=== PATIENT | male | born 1985 | race Caucasian/White ===

== ENCOUNTER 2022-01-15 16:14 | Emergency (ER) | payer SELFPAY ==
[~2022-01-15] VITALS: Ht 165.1 cm; Wt 72.6 kg
[2022-01-15 16:43] VITALS: BP 123/74
--- NOTE | 2022-01-15 16:52 | NUR ---
37 y/o Male BIB self for c/o of "genital abcess" pt noted with redenned raised tender lump noted on pubic area. Denies use of IV drugs, denies any trauma to area. Pt denies fever/CP/N/V/D. PmHx: Denies Allergies: Denies Home mneds: denies
--- NOTE | 2022-01-15 17:03 | NUR ---
Pt encouraged to urinate, pt states he is unable to at this time. Provided with water and urine cup so pt can provide sample.
[2022-01-15] MEDS: KETOROLAC 30 MG/ML VIAL IM ONE (17:41)
[2022-01-15] MEDS: LIDOCAINE 2% 1000 MG/50 ML VIAL INJ ONE (18:15)
[2022-01-15] MEDS ORDERED: CEPH-588 PO (18:20)
[2022-01-15] MEDS ORDERED: IBUP-1842 PO (18:20)
--- NOTE | 2022-01-15 18:25 | NUR ---
PT GENITAL ABCESS DRESSED AND BANDAGED
[2022-01-15 18:34] VITALS: BP 123/74
--- NOTE | 2022-01-15 18:34 | NUR ---
Patient discharged with v/s stable. Written and verbal after care instructions given and explained. Patient alert, oriented and verbalized understanding of instructions. Ambulatory with steady gait. All questions addressed prior to discharge. ID band removed. Patient advised to follow up with PMD. Rx of ibuprofen, cephalexin (sent) given. Patient educated on indication of medication including possible reaction and side effects. Opportunity to ask questions provided and answered.
== END 2022-01-15 18:34 | disposition home or self-care (01) ==
LOC: MED 16:14
DX: L02.211 Cutaneous abscess of abdominal wall (principal); Z79.899 Other long term (current) drug therapy
CPT/HCPCS: 96372; 99283; J1885; J2001

== ENCOUNTER 2022-03-17 20:33 | Emergency (ER) | payer SELFPAY ==
[~2022-03-17] VITALS: Ht 165.1 cm; Wt 72.6 kg
[~2022-03-17 20:33] MED LIST: CEPH-588 PO; IBUP-1842 PO
[2022-03-17 20:50] VITALS: BP 131/74
--- NOTE | 2022-03-17 20:53 | NUR ---
TO LOBBY A/W BED AMBULATORY
--- NOTE | 2022-03-17 21:41 | NUR ---
PT TAKEN TO BED 11
--- NOTE | 2022-03-17 21:45 | NUR ---
RECEIVED IN BED 11 WITH C/O ABSCESS RIGHT AXILLA. C/O PAIN. REDNESS AND SWELLING NOTED. SX X 1 WEEK
--- NOTE | 2022-03-17 22:35 | NUR ---
Dr. Pack examining patient.
[2022-03-17] MEDS ORDERED: LIDOCAINE/EPI 1% 1:100000 20 ML VIAL INJ ONE (22:40)
[2022-03-17] MEDS ORDERED: NAPR-54 PO (22:42)
[2022-03-17] MEDS ORDERED: CEPH-588 PO (22:42)
[2022-03-17 22:48] VITALS: BP 131/74
[2022-03-18] MEDS ORDERED: CLIN300C2 PO (06:58)
[2022-03-18] MEDS ORDERED: EPIN1KIT31 IM (06:58)
[2022-03-18] MEDS ORDERED: PRED20TA5 PO (06:58)
[2022-03-18] MEDS ORDERED: DIPH25TA39 PO (06:58)
== END 2022-03-17 22:54 | disposition home or self-care (01) ==
LOC: MED 20:33
DX: L02.411 Cutaneous abscess of right axilla (principal); Z79.899 Other long term (current) drug therapy
CPT/HCPCS: 10060; 99283; J2001

== ENCOUNTER 2022-03-18 06:36 | Emergency (ER) | payer SELFPAY ==
[~2022-03-18] VITALS: Ht 165.1 cm; Wt 72.6 kg
[~2022-03-18 06:36] MED LIST changes: +NAPR-54 PO
[2022-03-18 06:41] VITALS: BP 131/79
--- NOTE | 2022-03-18 06:41 | NUR ---
to bed ambulatory
--- NOTE | 2022-03-18 06:45 | NUR ---
RECEIVED IN BED 11 WITH C/O HIVES WHICH STARTED AFTER TAKING KEFLEX
--- NOTE | 2022-03-18 06:50 | NUR ---
Dr. Church examining patient.
[2022-03-18] MEDS ORDERED: diphenhydrAMINE 50 MG/ML VIAL IM ONE (06:55)
[2022-03-18] MEDS ORDERED: diphenhydrAMINE 50 MG/ML VIAL ONE (06:57)
[2022-03-18] MEDS ORDERED: DIPH25TA39 PO (06:58)
[2022-03-18] MEDS ORDERED: CLIN300C2 PO (06:58)
[2022-03-18] MEDS ORDERED: EPIN1KIT31 IM (06:58)
[2022-03-18] MEDS ORDERED: PRED20TA5 PO (06:58)
[2022-03-18 07:03] VITALS: BP 131/79
--- NOTE | 2022-03-18 07:03 | NUR ---
Patient discharged with v/s stable. Written and verbal after care instructions given and explained. Patient alert, oriented and verbalized understanding of instructions. Ambulatory with steady gait. All questions addressed prior to discharge. ID band removed. Patient advised to follow up with PMD. Rx of EPIPEN, CLEOCIN, AND BENADRYL given. Patient educated on indication of medication including possible reaction and side effects. Opportunity to ask questions provided and answered.
== END 2022-03-18 07:03 | disposition home or self-care (01) ==
LOC: MED 06:36
DX: L50.0 Allergic urticaria (principal); Z88.1 Allergy status to other antibiotic agents
CPT/HCPCS: 96372; 99283; J1200

== ENCOUNTER 2022-03-20 11:56 | Emergency (ER) | payer SELFPAY ==
[~2022-03-20] VITALS: Ht 165.1 cm; Wt 73.0 kg
[~2022-03-20 11:56] MED LIST changes: +CLIN300C2 PO; +DIPH25TA39 PO; +EPIN1KIT31 IM; +PRED20TA5 PO
[2022-03-20 12:10] VITALS: BP 124/74
[2022-03-20 16:10] VITALS: BP 133/65
--- NOTE | 2022-03-20 16:10 | NUR ---
WALKED IN C/O ABSCESS ON RIGHT ARMPIT. DOES NOT APPEAR EDEMATOUS. DRESSING REMOVED FOR EXAM.
--- NOTE | 2022-03-20 16:21 | NUR ---
ERMD AT BEDSIDE FOR WOUND CHECK
[2022-03-20] MEDS ORDERED: CLIN300C73 PO (16:27)
--- NOTE | 2022-03-20 16:30 | NUR ---
Patient discharged with v/s stable. Written and verbal after care instructions given and explained. Patient alert, oriented and verbalized understanding of instructions. Ambulatory with steady gait. All questions addressed prior to discharge. ID band removed. Patient advised to follow up with PMD. Rx of CLINDAMYCIN given. Patient educated on indication of medication including possible reaction and side effects. Opportunity to ask questions provided and answered.
== END 2022-03-20 16:30 | disposition home or self-care (01) ==
LOC: MED 11:56
DX: L02.411 Cutaneous abscess of right axilla (principal); Z88.1 Allergy status to other antibiotic agents
CPT/HCPCS: 99283